=== PATIENT | female | born 1990 | race Caucasian/White ===

== ENCOUNTER 2016-07-03 19:38 | Inpatient (IN) | payer OTHER ==
[~2016-07-03] VITALS: Ht 157.5 cm; Wt 77.3 kg
[~2016-07-03 19:38] MED LIST: CLC100 PO; FLX10 PO; IBUP-1050 PO; MELA1TAB54 PO; MULT-506 PO
[2016-07-03] MEDS ORDERED: SODIUM CHLORIDE 0.9% 1000ML 1,000 ML IV STA (19:53)
[2016-07-03 20:19] LABS: URINE APPEARANCE CLEAR (CLEAR); URINE BILIRUBIN NEG (NEG); URINE COLOR YELLOW; URINE NITRITE NEG (NEG); URINE PH 7.5 (4.5-7.5); URINE SPECIFIC GRAVITY 1.003 (1.000-1.030); UROBILINOGEN NEG (NEG)
[2016-07-03 20:24] LABS: MANUAL MICROSCOPIC REQUIRED? NO; REVIEW REQ? NO
[2016-07-03 20:24] LABS: INR 0.9 (0.9-1.1); PROTHROMBIN TIME (PATIENT) 10.1 SECONDS (9.0-12.0)
--- NOTE | 2016-07-03 20:24 | DIAGNOSTIC IMAGING REPORT ---
CHEST ONE VIEW PORTABLE CLINICAL HISTORY: Overdose COMPARISON STUDY: No previous studies for comparison. FINDINGS: Lung volumes are normal. Kyphotic positioning is noted on this exam. No consolidation is present and there is no evidence of pulmonary edema. There is no pneumothorax or pleural effusion. Cardiomediastinal silhouette is normal. IMPRESSION: No acute cardiopulmonary findings. Electronically signed by: Demarcus Loomis M.D. 07/03/2016 8:23 PM Dictated Date/Time: 07/03/2016 8:22 PM
[2016-07-03 20:26] LABS: ALT/SGPT 14 U/L (12-78); BLOOD UREA NITROGEN 12 mg/dl (7-18); BUN/CREATININE RATIO 12.5 (10-20); CALCIUM 9.6 mg/dl (8.5-10.1); CARBON DIOXIDE 25 mmol/L (21-32); CHLORIDE 108 mmol/L (98-107); CREATININE 0.97 mg/dl (0.60-1.20); GLUCOSE 94 mg/dl (70-99); POTASSIUM 3.2 mmol/L (3.5-5.1); SODIUM 143 mmol/L (136-145)
[2016-07-03 20:29] LABS: ACETAMINOPHEN < 2 ug/ml (10-30); ALKALINE PHOSPHATASE 59 U/L (45-117); AST/SGOT 15 U/L (15-37)
[2016-07-03 20:46] LABS: BENZODIAZEPINE, URINE NEG (NEG); COCAINE,URINE NEG (NEG); PHENCYCLIDINE, URINE NEG (NEG)
[2016-07-03 20:47] LABS: BASO % 0.4 %; BASO ABS # 0.03 K/uL (0-0.2); COMPLETE YES; EOS % 0.6 %; HEMATOCRIT 36.8 % (37-47); IG% 0.1 %; LYMPH % 43.3 %; LYMPH ABS # 3.04 K/uL (1.2-3.4); MEAN CELL VOLUME 91.3 fL (80-100); MEAN CORPUSCULAR HEMOGLOBIN 31.3 pg (25-34); MEAN CORPUSCULAR HGB CONC 34.2 g/dl (32-36); MEAN PLATELET VOLUME 10.7 fL (7.4-10.4); MONO % 5.3 %; NEUT % 50.3 %; PLATELET COUNT 192 K/uL (130-400); RED BLOOD COUNT 4.03 M/uL (4.2-5.4); WHITE BLOOD COUNT 7.02 K/uL (4.8-10.8)
[2016-07-03] MEDS ORDERED: POTASSIUM CHLORIDE 10 MEQ TABCR PO STA (21:03)
[2016-07-03] MEDS ORDERED: LORAZEPAM 2 MG/ML 1 ML VIAL IV PRN ×2 (21:15)
[2016-07-03] MEDS ORDERED: ACETAMINOPHEN 325 MG TAB PO PRN (21:15)
[2016-07-03 21:26] LABS: PREG INTERNAL NEGATIVE QC NEG CLEAR BACKGROUND; PREG INTERNAL POSITIVE QC POS CONTROL LINE
--- NOTE | 2016-07-03 22:08 | History and Physical ---
History & Physical Date & Time of Service: Jul 03, 2016 at 21:38 Chief Complaint: Overdose, Confusion, Mental Health Primary Care Physician: Salinas Ellis M.D. History of Present Illness This is a 26 y/o female with PMHx of Depression, Anxiety and Schizophrenia who presents to the ED after an intentional overdose prior to arrival. Patient is poor historian and there is no family at bedside therefore history is gathered from patient and previous documentation. Pt reports that she has been feeling more depressed lately and tonight she was hearing voices that "put me down and tell me to do bad things." She took 60 25mg caps of hydroxyzine and 30 pills of BuSpar in an attempt to kill herself. The patient denies taking any other medications tonight. She currently feels "sleepy" but has no other complaints at this time. Pt has a history of previous suicide attempts. She denies homicidal ideation. She denies diaphoresis, chest pain, SOB, wheezing, abd pain , N/V, bowel or bladder issues, LE edema ,calf pain, lightheadedness/dizziness. In the ED, vitals are stable. K+ 3.2. Tox screen +THC. CXR negative. EKG NSR with normal Qtc. Pt will be admitted for further evaluation and treatment. Past Medical/Surgical History Medical Problems: (1) Anxiety Status: Chronic (2) Depression Status: Chronic (3) Schizophrenia Status: Chronic Social History Smoking Status: Former Smoker Marital Status: Housing status: lives with significant other Allergies Coded Allergies: No Known Allergies (Unverified , 07/03/16) Home Medications Unable to Obtain Active Prescriptions or Reported Meds Review of Systems Constitutional: No chills, No fever, No weakness Eyes: No worsening of vision ENT: No hearing loss Respiratory: No cough, No shortness of breath Cardiovascular: No chest pain, No claudication, No edema Abdomen: No constipation, No diarrhea, No nausea, No pain, No vomiting Musculoskeletal: No calf pain, No swelling Genitourinary - Female: No dysuria Neurologic: No weakness Psychiatric: + depression symptoms, + problem reported (hearing voices) Endocrine: + fatigue Hematologic / Lymphatic: No abnormal bleeding/bruising Integumentary: No new/changing skin lesions Physical Exam Vital Signs Date Time Temp Pulse Resp B/P Pulse Ox O2 Delivery O2 Flow Rate FiO2 07/03/16 21:24 126/83 07/03/16 21:12 94 18 100 Room Air 07/03/16 19:46 36.9 106 18 123/91 97 Room Air 07/03/16 19:46 98 Room Air General Appearance: WD/WN, no apparent distress, + pertinent finding (Pt is laying in bed appearing very aggitated and restless; no family at bedside) Head: normocephalic, atraumatic Eyes: normal inspection, PERRL ENT: hearing grossly normal Neck: supple Respiratory/Chest: chest non-tender, lungs clear, normal breath sounds, no respiratory distress Cardiovascular: regular rate, rhythm, no edema, no murmur Abdomen/GI: normal bowel sounds, non tender, soft Back: normal inspection Extremities/Musculoskelatal: normal inspection, no calf tenderness, no pedal edema Neurologic/Psych: alert, oriented x 3 (oriented to person and place but not to time), + pertinent finding (responding to auditory hallucinations) Skin: normal color, warm/dry Diagnostics Laboratory Results Results Past 24 Hours Test 07/03/16 19:15 07/03/16 20:03 07/03/16 20:05 07/03/16 20:08 Range/Units White Blood Count 7.02 4.8-10.8 K/uL Red Blood Count 4.03 4.2-5.4 M/uL Hemoglobin 12.6 12.0-16.0 g/dL Hematocrit 36.8 37-47 % Mean Corpuscular Volume 91.3 80-100 fL Mean Corpuscular Hemoglobin 31.3 25-34 pg Mean Corpuscular Hemoglobin Concent 34.2 32-36 g/dl Platelet Count 192 130-400 K/uL Mean Platelet Volume 10.7 7.4-10.4 fL Neutrophils (%) (Auto) 50.3 % Lymphocytes (%) (Auto) 43.3 % Monocytes (%) (Auto) 5.3 % Eosinophils (%) (Auto) 0.6 % Basophils (%) (Auto) 0.4 % Neutrophils # (Auto) 3.53 1.4-6.5 K/uL Lymphocytes # (Auto) 3.04 1.2-3.4 K/uL Monocytes # (Auto) 0.37 0.11-0.59 K/uL Eosinophils # (Auto) 0.04 0-0.5 K/uL Basophils # (Auto) 0.03 0-0.2 K/uL RDW Standard Deviation 45.3 36.4-46.3 fL RDW Coefficient of Variation 13.6 11.5-14.5 % Immature Granulocyte % (Auto) 0.1 % Immature Granulocyte # (Auto) 0.01 0.00-0.02 K/uL Nucleated RBC Absolute Count (auto) 0.00 0-0 K/uL Nucleated Red Blood Cells % 0.0 % Prothrombin Time 10.1 9.0-12.0 SECONDS Prothromb Time International Ratio 0.9 0.9-1.1 Activated Partial Thromboplast Time 26.7 21.0-31.0 SECONDS Partial Thromboplastin Ratio 1.0 Sodium Level 143 136-145 mmol/L Potassium Level 3.2 3.5-5.1 mmol/L Chloride Level 108 98-107 mmol/L Carbon Dioxide Level 25 21-32 mmol/L Anion Gap 10.0 3-11 mmol/L Blood Urea Nitrogen 12 7-18 mg/dl Creatinine 0.97 0.60-1.20 mg/dl Est Creatinine Clear Calc Drug Dose 85.4 ml/min Estimated GFR () 92.1 Estimated GFR (Non- 79.5 BUN/Creatinine Ratio 12.5 10-20 Random Glucose 94 70-99 mg/dl Calcium Level 9.6 8.5-10.1 mg/dl Total Bilirubin 0.4 0.2-1 mg/dl Direct Bilirubin < 0.1 0-0.2 mg/dl Aspartate Amino Transf (AST/SGOT) 15 15-37 U/L Alanine Aminotransferase (ALT/SGPT) 14 12-78 U/L Alkaline Phosphatase 59 45-117 U/L Total Creatine Kinase 116 26-192 U/L Total Protein 7.7 6.4-8.2 gm/dl Albumin 4.4 3.4-5.0 gm/dl Lipase 138 73-393 U/L Human Chorionic Gonadotropin, Qual NEG NEG Salicylates Level < 1.7 2.8-20 mg/dl Acetaminophen Level < 2 10-30 ug/ml Ethyl Alcohol mg/dL < 3.0 0-3 mg/dl Urine Color YELLOW Urine Appearance CLEAR CLEAR Urine pH 7.5 4.5-7.5 Urine Specific [place] 1.003 1.000-1.030 Urine Protein NEG NEG Urine Glucose (UA) NEG NEG Urine Ketones NEG NEG Urine Occult Blood NEG NEG Urine Nitrite NEG NEG Urine Bilirubin NEG NEG Urine Urobilinogen NEG NEG Urine Leukocyte Esterase NEG NEG Urine Opiates Screen NEG NEG Urine Methadone, Qualitative NEG NEG Urine Barbiturates NEG NEG Urine Phencyclidine (PCP) Level NEG NEG Ur Amphetamine/Methamphetamine NEG NEG MDMA (Ecstasy) Screen NEG NEG Urine Benzodiazepines Screen NEG NEG Urine Cocaine Metabolite NEG NEG Urine Marijuana (THC) POS NEG Bedside Glucose 97 70-90 mg/dl Diagnostic Radiology CXR IMPRESSION: No acute cardiopulmonary findings. EKG EKG: NSR at 85 bpm with no acute changes; no previous EKGs available for comparison Impression Assessment and Plan SUICIDE ATTEMPT/INTENTIONAL DRUG OVERDOSE pt presented after intentional drug overdose (60 30mg hydroxyzine and 30 pills of buspar); h/o previous suicide attempts -admit to telemetry -EKG: Qtc WNL; continue to monitor -Tox screen + THC -cont IVF -start Ativan PRN agitation or seizure -suicide checks q 15 mins -seizure precautions -patient denies homicidal ideation -consult psych, Dr. Fischer-pending input HYPOKALEMIA -K+ 3.2 -replete -monitor with prp daily SCHIZOPHRENIA/DEPRESSION/ANXIETY -+ auditory hallucinations -unsure if patient is on medication at home -defer mgmt to psych DVT PROPHYLAXIS -Low VTE risk -SCDs/ambulation CODE STATUS -FULL CODE status DISPO -Once medically stable, patient will be transferred to inpatient psych. -No family at bedside. Tried calling home contact number on chart ([phone] ) with no answer. is listed as contact however there is no number listed. -Pt seen in collaboration with Dr. Auguste. Please see her addendum for further details. Thanks! -Of note: patient will be followed by Dr. Hawk starting tomorrow AM. ATTENDING ADDENDUM : pt seen and examined , in agreement with above H&P by Dede Mckeon PA-C 26 yo F with past medical hx of schizophrenia ( no psychiatric records available during admission ) , anxiety disorder , depression presented with ED with intentional overdose of Vistaril /Hydroxyzine and BuSpar unable to get a reliable history form the patient -as she was still experiencing auditory hallucinations ( hearing voices ) , anxiety mentions that " she does not have any idea why the tool all those medications , then corrects herself that voices in her head asked to take them starts to talk to invisible person in mid conversation but polite -thanks very kindly for taking care of her in hospital P/E: GEN : young female , anxious , fidgeting with bed sheets , changing position constantly HEENT: pupils appears to be normal size, reactive to light HT: regular Lungs : CTA , no wheeze or rales abdomen ; soft,. non tender EXT: no rash Neuro : no focal neurological deficit , anxious , auditory hallucinations A/P: INTENTIONAL DRUG OVER DOSE pt mentions of intention to harm herself -says voices in her head told her to take them took 60tab of 30mg hydroxyzine and 30 pills of buspar prior hx of Suicidal attempt /admission [facility] Psych unit -no record found in [facility] poison control center contacted by ED Hydroxyzine H1 pauline -overdose -concern for antimuscarinic receptor blocking affect -SOB /urinary retention /tachycardiac /dry mouth /dilated pupil /delirium /hallucination monitor for Qtc prolongation -can lead to [place] Buspar OD : drowsiness , nausea , vomiting , [place] pupil ; short half life 2.5 hrs urine tox screen : negative for BDZ positive for THC -MARIJUANA per Poison control center -recommend supportive care with IV fluids seizure precaution PRN Ativan /BDZ for seizure daily EKG for QTc monitoring ( Admission EKG Qtc 452 ) LOW k : Replaced follow K , Mg level to prevent arrhythmia PSYCHOSIS /SCHIZOPHRENIA pt could not tell which psychiatrist she follows with no antipsychotic medication found in medicine reconciliation having Psychotic episode with Auditory hallucination Psych consult requested will need adjustment of med s Full code DISPOSITION ; will need in patient psych admission once medically stable form drug over dose VTE Prophylaxis VTE Risk Assessment Done? Y/N: Yes Risk Level: Low
[2016-07-03] MEDS ORDERED: ONDANSETRON INJ 2 MG/ML 2 ML VIAL IV PRN (22:15)
[2016-07-03 22:20] VITALS: Ht 157.5 cm; Wt 77.3 kg
[2016-07-03] MEDS ORDERED: SODIUM CHLORIDE 0.9% 1000ML 1,000 ML IV SCH (23:00)
[2016-07-03 23:59] VITALS: O2SAT 98
[2016-07-04] VITALS: BP 109/72; PULSE 99; TEMP 36.8; O2SAT 97
--- NOTE | 2016-07-04 01:13 | EMERGENCY ROOM VISIT NOTE ---
History Report prepared by Nivia: Maye Tapia Under the Supervision of: Cristian FarrisO. First contact with patient: 19:42 Chief Complaint: OVERDOSE (INTENTIONAL) Stated Complaint: OVERDOSE, CONFUSION, MENTAL HEALTH History of Present Illness The patient is a 26 year old female who presents to the Emergency Room with complaints of an episode of an intentional overdose occurring about 1 hour [employer]ARE TE[employer]. The patient has a history of anxiety, depression, and schizophrenia. She states that she has been feeling more depressed lately and tonight she was hearing voices that "put me down and tell me to do bad things." She took 60 25mg caps of hydroxyzine and 30 pills of BuSpar. She did this in an attempt to kill herself. She states, "I just haven't been feeling good and it escalated tonight. " The patient denies taking any other medications tonight. She denies taking any Motrin or Tylenol. She denies any HI, headache, chest pain, shortness of breath, changes in vision, nausea, vomiting, diarrhea, urinary symptoms, and chance of . Her LNMP was 1 month ago. Source of History: patient, nursing staff Onset: 1 hour DAY CARE TEACHER Position: other (global) Quality: other (suicidal) Timing: other (episode) Modifying Factors (Worsening): other (depression/hearing voices) Associated Symptoms: No SOB, No chest pain, No diarrhea, No headache, No urinary symptoms, No vomiting Note: Pt denies HI, changes in vision, and chance of . Review of Systems See HPI for pertinent positives & negatives. A total of 10 systems reviewed and were otherwise negative. Past Medical & Surgical Medical Problems: (1) Anxiety (2) Depression (3) Intentional drug overdose (4) Schizophrenia Family History No pertinent history stated. Social History Smoking Status: Unknown if Ever Smoked Marital Status: Current/Historical Medications Unable to Obtain Active Prescriptions or Reported Meds Allergies Coded Allergies: No Known Allergies (Unverified , 07/03/16) Physical Exam Vital Signs Date Time Temp Pulse Resp B/P Pulse Ox O2 Delivery O2 Flow Rate FiO2 07/03/16 19:46 36.9 106 18 123/91 97 Room Air 07/03/16 19:46 98 Room Air Physical Exam GENERAL: alert, sitting up in bed, disheveled appearing, well nourished, no distress, non-toxic, intermittent hiccups EYE EXAM: normal conjunctiva, PERRL and EOM's intact OROPHARYNX: no exudate, no erythema, lips, buccal mucosa, and tongue normal and mucous membranes are moist NECK: supple, no nuchal rigidity, no adenopathy, non-tender LUNGS: Clear to auscultation. Normal chest wall mechanics HEART: Tachycardic, no murmurs, S1 normal and S2 normal ABDOMEN: abdomen soft, non-tender, normo-active bowel sounds, no masses, no rebound or guarding. BACK: Back is symmetrical on inspection and there is no deformity, no midline tenderness, no CVA tenderness. SKIN: no rashes and no bruising UPPER EXTREMITIES: upper extremities are grossly normal. LOWER EXTREMITIES: No pitting edema. NEURO EXAM: Alert and oriented to person, place, and year. Cranial nerves II- XII grossly intact, normal speech, no gross weakness of arms, no gross weakness of legs. PSYCH: Admits to suicide attempt with auditory hallucination, denies HI. Medical Decision & Procedures ER Provider Diagnostic Interpretation: Radiology results as stated below per my review and the radiologist's interpretation: CHEST ONE VIEW PORTABLE CLINICAL HISTORY: Overdose COMPARISON STUDY: No previous studies for comparison. FINDINGS: Lung volumes are normal. Kyphotic positioning is noted on this exam. No consolidation is present and there is no evidence of pulmonary edema. There is no pneumothorax or pleural effusion. Cardiomediastinal silhouette is normal. IMPRESSION: No acute cardiopulmonary findings. Electronically signed by: Demarcus Loomis M.D. 07/03/2016 8:23 PM Dictated Date/Time: 07/03/2016 8:22 PM Laboratory Results 07/03/16 19:15 Red Blood Count 4.03, Mean Corpuscular Volume 91.3, Mean Corpuscular Hemoglobin 31.3, Mean Corpuscular Hemoglobin Concent 34.2, Mean Platelet Volume 10.7, Neutrophils (%) (Auto) 50.3, Lymphocytes (%) (Auto) 43.3, Monocytes (%) (Auto) 5.3, Eosinophils (%) (Auto) 0.6, Basophils (%) (Auto) 0.4, Neutrophils # (Auto) 3.53, Lymphocytes # (Auto) 3.04, Monocytes # (Auto) 0.37, Eosinophils # (Auto) 0.04, Basophils # (Auto) 0.03 07/03/16 19:15 Test 07/03/16 19:15 07/03/16 20:03 07/03/16 20:05 07/03/16 20:08 White Blood Count 7.02 K/uL (4.8-10.8) Red Blood Count 4.03 M/uL (4.2-5.4) Hemoglobin 12.6 g/dL (12.0-16.0) Hematocrit 36.8 % (37-47) Mean Corpuscular Volume 91.3 fL (80-100) Mean Corpuscular Hemoglobin 31.3 pg (25-34) Mean Corpuscular Hemoglobin Concent 34.2 g/dl (32-36) Platelet Count 192 K/uL (130-400) Mean Platelet Volume 10.7 fL (7.4-10.4) Neutrophils (%) (Auto) 50.3 % Lymphocytes (%) (Auto) 43.3 % Monocytes (%) (Auto) 5.3 % Eosinophils (%) (Auto) 0.6 % Basophils (%) (Auto) 0.4 % Neutrophils # (Auto) 3.53 K/uL (1.4-6.5) Lymphocytes # (Auto) 3.04 K/uL (1.2-3.4) Monocytes # (Auto) 0.37 K/uL (0.11-0.59) Eosinophils # (Auto) 0.04 K/uL (0-0.5) Basophils # (Auto) 0.03 K/uL (0-0.2) RDW Standard Deviation 45.3 fL (36.4-46.3) RDW Coefficient of Variation 13.6 % (11.5-14.5) Immature Granulocyte % (Auto) 0.1 % Immature Granulocyte # (Auto) 0.01 K/uL (0.00-0.02) Nucleated RBC Absolute Count (auto) 0.00 K/uL (0-0) Nucleated Red Blood Cells % 0.0 % Prothrombin Time 10.1 SECONDS (9.0-12.0) Prothromb Time International Ratio 0.9 (0.9-1.1) Activated Partial Thromboplast Time 26.7 SECONDS (21.0-31.0) Partial Thromboplastin Ratio 1.0 Anion Gap 10.0 mmol/L (3-11) Est Creatinine Clear Calc Drug Dose 85.4 ml/min Estimated GFR () 92.1 Estimated GFR (Non- 79.5 BUN/Creatinine Ratio 12.5 (10-20) Calcium Level 9.6 mg/dl (8.5-10.1) Total Bilirubin 0.4 mg/dl (0.2-1) Direct Bilirubin < 0.1 mg/dl (0-0.2) Aspartate Amino Transf (AST/SGOT) 15 U/L (15-37) Alanine Aminotransferase (ALT/SGPT) 14 U/L (12-78) Alkaline Phosphatase 59 U/L (45-117) Total Creatine Kinase 116 U/L (26-192) Total Protein 7.7 gm/dl (6.4-8.2) Albumin 4.4 gm/dl (3.4-5.0) Lipase 138 U/L (73-393) Human Chorionic Gonadotropin, Qual NEG (NEG) Salicylates Level < 1.7 mg/dl (2.8-20) Acetaminophen Level < 2 ug/ml (10-30) Ethyl Alcohol mg/dL < 3.0 mg/dl (0-3) Urine Color YELLOW Urine Appearance CLEAR (CLEAR) Urine pH 7.5 (4.5-7.5) Urine Specific [place] 1.003 (1.000-1.030) Urine Protein NEG (NEG) Urine Glucose (UA) NEG (NEG) Urine Ketones NEG (NEG) Urine Occult Blood NEG (NEG) Urine Nitrite NEG (NEG) Urine Bilirubin NEG (NEG) Urine Urobilinogen NEG (NEG) Urine Leukocyte Esterase NEG (NEG) Urine Opiates Screen NEG (NEG) Urine Methadone, Qualitative NEG (NEG) Urine Barbiturates NEG (NEG) Urine Phencyclidine (PCP) Level NEG (NEG) Ur Amphetamine/Methamphetamine NEG (NEG) MDMA (Ecstasy) Screen NEG (NEG) Urine Benzodiazepines Screen NEG (NEG) Urine Cocaine Metabolite NEG (NEG) Urine Marijuana (THC) POS (NEG) Bedside Glucose 97 mg/dl (70-90) Laboratory results per my review. Medications Administered Medications (Trade) Dose Ordered Sig/Rosa Route Start Time Stop Time Status Last Admin Dose Admin Sodium Chloride (Nss 1000ml) 1,000 ml @ 999 mls/hr Q1H1M STAT IV 07/03/16 19:53 07/03/16 20:53 DC 07/03/16 20:09 999 MLS/HR Potassium Chloride (Klor-Con M10) 30 meq NOW STAT PO 07/03/16 21:03 07/03/16 21:14 DC 07/03/16 21:22 30 MEQ ECG Indication: toxicologic Rate (beats per minute): 85 Rhythm: normal sinus Findings: no ectopy, other (normal axis, normal intervals) ED Course ED COURSE: Vital signs were reviewed and showed tachycardia. The patients medical record was reviewed The above diagnostic studies were performed and reviewed. ED treatments and interventions as stated above. 1941: The patient was evaluated in room B6. A complete history and physical examination was performed. 1952: NSS 1000 ml @ 999 mls/hr IV 2026: I reassessed the patient and she is doing well. 2038: I spoke with Poison Control at this time. We discussed the patient's case. They recommend monitoring the patient medically for seizures or lethargy. 2041: Upon reevaluation, the patient is she is resting comfortably. I discussed my findings with the patient and she understands and agrees with the treatment plan. Based on the patients age, coexisting illnesses, exam and lab findings the decision to treat as an inpatient was made. The patient remained stable while under my care. The patient will be evaluated for further management. 2057: I spoke with Dr. Auguste. We discussed the patient's results and treatment plan. The patient will be evaluated by the [facility] Hospitalist Group for further management. Medical Decision Differential diagnosis: Etiologies such as mood disorder, infection, hypoglycemia, electrolyte abnormalities, cardiac sources, intracerebral event, toxicologic, neurologic, as well as others were entertained. Patient is a 18-year-old female who presents the ER for a suicide attempt. She took 1.5 g of Vistaril and 300 mg of BuSpar. She was fairly tired and was initially tachycardic but this improved. CBC along with BMP, LFTs, bilirubin and lipase were negative. was negative. Potassium was slightly low at 3.2. EKG was unremarkable. Tylenol and acetaminophen was negative. Alcohol was negative. UA was negative. Patient was given a bolus normal saline and was admitted to internal medicine following discussion with Poison Control Center for observation overnight. Consults Time Called: 2004 Consulting Physician: Poison Control Returned Call: 2038 I spoke with Poison Control at this time. We discussed the patient's case. They recommend monitoring the patient medically for seizures or lethargy. Additional Consults: Time Called: 2050 Consulted Physician: Dr. Auguste Returned Call: 2057 Additional Comments: I spoke with Dr. Auguste. We discussed the patient's results and treatment plan. The patient will be evaluated by the [facility] Hospitalist Group for further management. Impression Primary Impression: Suicide attempt Additional Impression: Drug overdose Scribe Attestation The scribe's documentation has been prepared under my direction and personally reviewed by me in its entirety. I confirm that the note above accurately reflects all work, treatment, procedures, and medical decision making performed by me. Departure Information Dispostion Being Evaluated By Hospitalist Prescriptions Unable to Obtain Active Prescriptions or Reported Meds Patient Instructions My [facility] Problem Qualifiers Additional Impression: Drug overdose Encounter type: initial encounter Injury intent: intentional self-harm Qualified Codes: T50.902A - Poisoning by unspecified drugs, medicaments and biological substances, intentional self-harm, initial encounter
[2016-07-04 04:00] VITALS: BP 122/77; PULSE 82; TEMP 36.8; O2SAT 96; O2SAT 98
[2016-07-04 06:14] LABS: CALCIUM 9.6 mg/dl (8.5-10.1); CREATININE 0.98 mg/dl (0.60-1.20); MAGNESIUM 2.4 mg/dl (1.8-2.4); POTASSIUM 4.1 mmol/L (3.5-5.1)
[2016-07-04 07:26] LABS: HEMATOCRIT 39.1 % (37-47); MEAN CELL VOLUME 91.8 fL (80-100); MEAN CORPUSCULAR HGB CONC 33.8 g/dl (32-36); MEAN PLATELET VOLUME 10.9 fL (7.4-10.4); PLATELET COUNT 206 K/uL (130-400); RED BLOOD COUNT 4.26 M/uL (4.2-5.4); WHITE BLOOD COUNT 8.52 K/uL (4.8-10.8)
[2016-07-04 07:34] VITALS: BP 99/65; PULSE 66; TEMP 37.6; O2SAT 96
--- NOTE | 2016-07-04 10:23 | Psychiatric Consultation ---
Psychiatric Consultation Date of Service: Jul 04, 2016. 26-year-old white female with a history of depression and possibly other psychiatric diagnoses, who previously followed at [facility] but is currently off medications, who presented to the emergency room yesterday via EMS after an intentional overdose on 60 hydroxyzine and 30 buspirone. She told EMS that she overdosed in an attempt to harm herself, and was confused and disoriented when they arrived. She was admitted to the hospitalist service, where she has received supportive treatment. Records reviewed. Patient assessed by the psychiatric liaison nurse and case reviewed. The patient is willing for voluntary admission and has been accepted to [facility]. Please see admission history and physical for further information.
--- NOTE | 2016-07-04 10:47 | Discharge Instructions ---
Discharge Instructions Date of Service Jul 04, 2016. Admission Reason for Admission: Intentional Drug Overdose Discharge Discharge Diagnosis / Problem: Drug overdose Discharge Goals Goal(s): Decrease discomfort Activity Recommendations Activity Level: Up Ad Marya . Additional Information Patient informed of condition: Yes Advance Directives: No DNR: No Level of Care: Other (Inpatient mental health) Communicable Disease: No Prognosis: Stable Cordova Catheter: No Instructions / Follow-Up Instructions / Follow-Up Please follow up with your primary care physician within one week of discharge from inpatient mental health. Current Hospital Diet Patient's current hospital diet: Regular Diet Discharge Diet Recommended Diet: Regular Diet Pending Studies Studies pending at discharge: no Medical Emergencies . Who to Call and When: Medical Emergencies: If at any time you feel your situation is an emergency, please call 911 immediately. . Non-Emergent Contact Non-Emergency issues call your: Primary Care Provider, Specialist (Psychiatrist ) . . "Provider Documentation" section prepared by Airam Mendoza. Core Measure Problem Core Measures: None
[2016-07-04 10:53] VITALS: BP 99/65; PULSE 66; TEMP 37.6; O2SAT 96
--- NOTE | 2016-07-04 19:05 | Discharge Summary ---
Discharge Summary Date of Service Jul 04, 2016. Discharge Summary Admission Date: Jul 03, 2016 at 21:06 Discharge Date: Jul 04, 2016 Discharge Disposition: Acute care mental health Principal Diagnosis: Drug overdose Consultations: Psychiatry Medication Reconciliation Medication Profile: Unable to Obtain Active Prescriptions or Reported Meds Admission Information HPI (per Admitting provider): This is a 26 y/o female with PMHx of Depression, Anxiety and Schizophrenia who presents to the ED after an intentional overdose prior to arrival. Patient is poor historian and there is no family at bedside therefore history is gathered from patient and previous documentation. Pt reports that she has been feeling more depressed lately and tonight she was hearing voices that "put me down and tell me to do bad things." She took 60 25mg caps of hydroxyzine and 30 pills of BuSpar in an attempt to kill herself. The patient denies taking any other medications tonight. She currently feels "sleepy" but has no other complaints at this time. Pt has a history of previous suicide attempts. She denies homicidal ideation. She denies diaphoresis, chest pain, SOB, wheezing, abd pain , N/V, bowel or bladder issues, LE edema ,calf pain, lightheadedness/dizziness. In the ED, vitals are stable. K+ 3.2. Tox screen +THC. CXR negative. EKG NSR with normal Qtc. Pt will be admitted for further evaluation and treatment. Physical Exam (per Admitting): General Appearance: WD/WN, no apparent distress, + pertinent finding (Pt is laying in bed appearing very aggitated and restless; no family at bedside) Head: normocephalic, atraumatic Eyes: normal inspection, PERRL ENT: hearing grossly normal Neck: supple Respiratory/Chest: chest non-tender, lungs clear, normal breath sounds, no respiratory distress Cardiovascular: regular rate, rhythm, no edema, no murmur Abdomen/GI: normal bowel sounds, non tender, soft Back: normal inspection Extremities/Musculoskelatal: normal inspection, no calf tenderness, no pedal edema Neurologic/Psych: alert, oriented x 3 (oriented to person and place but not to time), + pertinent finding (responding to auditory hallucinations) Skin: normal color, warm/dry Hospital Course Patient was admitted after intentional overdose of hydroxyzine and buspirone. Patient received IVF's overnight and was monitored on telemetry without incident. Patient remained hemodynamically stable and labs were unremarkable. Psychiatry was consulted. Patient deemed stable for discharge to inpatient mental health. PE on discharge: General- awake; alert; NAD Eyes- EOMI; no scleral icterus Neck- no stridor; trachea midline Lungs- CTA bilaterally; no wheezes/crackles Heart- RRR; no m/r/g Abdomen- soft; NTND; nBS Back- no gross abnormalities Extremities- no c/c/e; no deformity Neuro- no focal deficits Skin- no appreciable rash or bruise; +tattoos . Total time spent on discharge = This includes examination of the patient, discharge planning, medication reconciliation, and communication with other providers. Discharge Instructions Discharge Instructions Date of Service Jul 04, 2016. Admission Reason for Admission: Intentional Drug Overdose Discharge Discharge Diagnosis / Problem: Drug overdose Discharge Goals Goal(s): Decrease discomfort Activity Recommendations Activity Level: Up Ad Marya . Additional Information Patient informed of condition: Yes Advance Directives: No DNR: No Level of Care: Other (Inpatient mental health) Communicable Disease: No Prognosis: Stable Cordova Catheter: No Instructions / Follow-Up Instructions / Follow-Up Please follow up with your primary care physician within one week of discharge from inpatient mental health. Current Hospital Diet Patient's current hospital diet: Regular Diet Discharge Diet Recommended Diet: Regular Diet Pending Studies Studies pending at discharge: no Medical Emergencies . Who to Call and When: Medical Emergencies: If at any time you feel your situation is an emergency, please call 911 immediately. . Non-Emergent Contact Non-Emergency issues call your: Primary Care Provider, Specialist (Psychiatrist ) . . "Provider Documentation" section prepared by Airam Mendoza. Core Measure Problem Core Measures: None Additional Copies To Salinas Ellis M.D.
== END 2016-07-04 11:10 | DRG 918 ==
LOC: ENRESERVDT → ENRESERVTM → C.EDB 19:42 → C.2T 21:06 → MERGE 21:06
PROVIDERS: ADMIT Hospitalist; ATTEND Internal Medicine
DX: T43.592A Poisoning by other antipsychotics and neuroleptics, intentional self-harm, initial encounter (principal); R40.0 Somnolence; R11.2 Nausea with vomiting, unspecified; R00.0 Tachycardia, unspecified; E87.6 Hypokalemia; F29 Unspecified psychosis not due to a substance or known physiological condition; F20.9 Schizophrenia, unspecified; F32.9 Major depressive disorder, single episode, unspecified; F41.9 Anxiety disorder, unspecified; Z91.5 Personal history of self-harm; Z87.891 Personal history of nicotine dependence

== ENCOUNTER 2016-07-04 11:10 | Inpatient (IN) | payer OTHER ==
[~2016-07-04] VITALS: Ht 154.9 cm; Wt 80.0 kg
[2016-07-04] MEDS ORDERED: ALUMINUM/MAGNESIUM SUSP 30 ML UDC PO PRN (11:45)
[2016-07-04] MEDS ORDERED: SODIUM CHLORIDE 0.65% NA SOLN 45 ML (OCEAN) PRN (11:45)
[2016-07-04] MEDS ORDERED: BISMUTH SUBSALICYLATE PER ML OMNICELL CHARGE PO PRN (11:45)
[2016-07-04] MEDS ORDERED: ACETAMINOPHEN 325 MG TAB PO PRN (11:45)
[2016-07-04] MEDS ORDERED: MAGNESIUM HYDROXIDE SUSP 30 ML UDC PO PRN (11:45)
[2016-07-04 11:56] VITALS: BP 129/83; PULSE 97; TEMP 36.6; BMI 33.3
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
[2016-07-04] MEDS ORDERED: RISPERIDONE ODT 1MG PO ONE (13:45)
[2016-07-04] MEDS: RISPERIDONE ODT 1MG PO SCH (21:15)
[2016-07-05 06:44] VITALS: BP_SYST 102; BP_SYST 128; BP_DIAS 68; BP_DIAS 82; PULSE 118; PULSE 92; TEMP 37
[2016-07-05 06:47] VITALS: Ht 154.9 cm; Wt 80.0 kg
[2016-07-05 08:32] LABS: CHOLESTEROL/HDL RATIO 2.5
[2016-07-05] MEDS: RISPERIDONE ODT 1MG PO SCH ×2 (08:39→21:11)
--- NOTE | 2016-07-05 13:18 | Psychiatric Progress Notes ---
Progress Note Date of Service Jul 05, 2016. Interval History 26 yo female admitted voluntarily on 07/04 with acute psychosis. Chief Complaint "OK". Subjective Patient was seen & assessed interval progress reviewed with Treatment Team. The patient reports that she continues to have auditory hallucinations, multiple voices "telling me destructive things" like to leave the unit, that she is no good. She also reports vis hallucinations seeing cats, cracks on the wall and holes. She feels that the TV is giving subliminal messages to the people of the [place], and that sometimes when she is on the phone, the people can read her mind. She feels that these symptoms are a little better on Risperdal. She report impaired sleep last night, laying awake unable to fall asleep. she denies SI/HI. She has not taken any PRN's but seems unaware that she has them. She denies side effects to meds. She says that even when not on meds, she sometimes feels like there are bugs crawling on her legs or in her food when she eats. She has experienced akathisia before and this is a different sensation. Review of Systems Constitutional: + fatigue ENT: No dental problems, No hearing loss, No nasal symptoms, No problem reported, No sore throat, No tinnitus, No trouble swallowing, No unusual epistaxis Respiratory: No cough, No dyspnea at rest, No dyspnea on exertion, No hemoptysis, No problem reported, No shortness of breath, No sputum, No wheezing Cardiovascular: No PND, No chest pain, No claudication, No edema, No orthopnea , No palpitations, No problem reported Abdomen: No GI bleeding, No constipation, No diarrhea, No nausea, No pain, No problem reported, No vomiting Musculoskeletal: No calf pain, No joint pain, No muscle pain, No problem reported, No swelling Neurologic: No balance problems, No memory loss, No numbness/tingling, No paralysis, No problem reported, No vertigo, No weakness Psychiatric: + problem reported (aud/vis/tactile hallucinations) Integumentary: + problem reported (tattoos) Sleep Information Total Hours of Sleep: 10.25 Meal Information Percent of Breakfast Consumed: 50 Percent of Lunch Consumed: 90 Percent of Dinner Consumed: 75 Mental Status Exam During interview pt is: alert and oriented, cooperative Appearance: appropriately dressed, appropriately groomed Eye contact is: good Motor behavior is: steady gait & station, no abnormal motor movements Speech: normal in rate, rhythm & volume Affect: mood congruent, blunted Mood is: depressed Thought process: goal directed Thought content: thought broadcasting, other (ideas of reference, aud/vis/ tactile hallucinations) Suicidal thought are: denied Homicidal thoughts are: denied Hallucinations: auditory, visual, tactile Cognition: memory grossly intact, attention grossly intact, language grossly intact Intelligence estimated to be: average Insight: impaired Judgement: impaired Impression Adjusting to the unit. continues with aud/vis/tactile hallucinations as well as ideas of reference and thought broadcasting. Tolerating start of risperdal with minimal improvement. Will increase to 1 mg. AM and 2 mg. HS Plan (1) Intentional drug overdose Avoid medications dangerous in overdose, as this is her third intentional OD. Attend groups and therapy, work on healthy ways to cope and discharge safety plan. Family meeting to review safety plan, ensure no access to guns, and that all meds in the home are locked and secured so she will not have access. (2) Psychosis Differential is broad and includes a primary thought disorder, such as schizophrenia or schizoaffective disorder, bipolar disorder with psychosis, depression with psychosis, or substance induced psychosis. The patient endorses many symptoms, and is a poor historian with respect to the time course of past symptoms. She does not know what she's been diagnosed with in the past , and to that end, we'll request records from Dr. Brandon, her outpatient psychiatrist. Patient's primary concern is AVH. Has never tried risperidone and willing for trial. Reviewed risks, benefits, and common side effects, and she agreed. Will start risperidone M tab, 1 mg twice a day with 1 mg every 6 hours when necessary psychosis. Check fasting labs tomorrow. She thinks that Abilify Maintena was considered in the past, and believe she had a good response to Abilify, but is not sure why this wasn't pursued. We'll need to look into this further, but if covered by insurance, it may be a good option. 07/05/16 - Increase risperdal to 1 mg. AM and 2 mg. HS. Continue prns - Reality orientation (3) Anxiety Patient reports symptoms of generalized anxiety disorder, and anxiety is worse recently due to hallucinations. We will need to continue to assess for the presence of an underlying anxiety disorder as her psychosis improved. In the meantime, offer hydroxyzine as needed for anxiety. (4) Bipolar disorder, unspecified The patient endorses periods of depression with frequent, brief, periods of hypomania. The longest lasted about 3 days per her report, so does not quite meet criteria for bipolar type II, but we'll need to further explore this diagnosis. It would be helpful to get collateral information from family, and to review records from outpatient providers. Consider the need for a mood stabilizer. She states she's never been on lithium or Depakote. (5) Cannabis abuse Reviewed risks of ongoing substance abuse and recommendations for abstinence. Refer for outpatient therapy and psychiatric f/u to address mental illness and substance abuse. Avoid prescription of medications that are addictive or abusable. Discharge / Aftercare Planning Primary Care Physician: Name: Dr. Ellis Psychiatrist: Name: Dr. Brandon Date of Appointment: Jul 12, 2016 Time of Appointment: 10:00am Therapist: Name: [facility] Appointment Notes: You will be scheduled for therapist after your appt with Dr. Kenyon Visit Code E&M Code: 31554 Inventory Assets Strengths: , supportive , responsibility for young children Risk Factors Assessment : Yes Higher / Fall in social status: No Health problems: No Mental Health Diagnoses: Yes Substance use disorders: Yes Data Vital Signs Last 24 Hrs: Date Time Temp Pulse Resp B/P Pulse Ox O2 Delivery O2 Flow Rate FiO2 07/05/16 06:44 37.0 92 18 102/68 118 128/82 Meds Administered Last 24 Hrs: Meds Administered (Past 24Hrs) Medications (Trade) Dose Ordered Sig/Rosa Route Start Time Stop Time Status Last Admin Dose Admin Risperidone (Risperdal M Tab) 1 mg BID PO 07/04/16 22:00 08/03/16 21:59 07/05/16 08:39 1 MG Risperidone (Risperdal M Tab) 1 mg NOW ONCE PO 07/04/16 13:45 07/04/16 13:46 DC 07/04/16 13:54 1 MG Lab Results Last 24 Hrs: Last 24 Hours Test 07/05/16 07:12 Fasting Glucose 85 mg/dl Triglycerides Level 123 mg/dl Cholesterol Level 171 mg/dl HDL Cholesterol 69 mg/dl LDL Cholesterol, Calculated 77 mg/dl VLDL Cholesterol, Calculated 25 mg/dl Cholesterol/HDL Ratio 2.5 Thyroid Stimulating Hormone (TSH) 1.570 uIu/ml Problem Qualifiers (1) Psychosis: Psychosis type: unspecified psychosis type Qualified Codes: F29 - Unspecified psychosis not due to a substance or known physiological condition
[2016-07-05] MEDS: RISPERIDONE ODT 0.5MG PO PRN (14:14)
[2016-07-05] MEDS: hydrOXYzine HCL 25 MG TAB PO PRN ×2 (15:35→22:09)
[2016-07-06 06:45] VITALS: BP_SYST 121; BP_SYST 122; BP_DIAS 85; BP_DIAS 88; PULSE 105; PULSE 99; TEMP 37
--- NOTE | 2016-07-06 07:52 | Psychiatric Progress Notes ---
Progress Note Date of Service Jul 06, 2016. Interval History 26 yo female with BPI with psychotic features admitted voluntarily on 07/04 with acute psychosis from the medical unit s/p TI of buspar and ativan prior to admission. Chief Complaint "I think this medication is helping me". Subjective Patient was seen & assessed interval progress reviewed with Nursing Ongoing chronic hallucinations and 07/05/16 shared she was having olfactory hallucinations in addition to the AH and VH. She is taking the risperdal 1mg/AM and 2mg/hs increased t that full dose on , had 0.5mg in the middle of the day prn "definitely helpful" was her response to staff came for a meeting and he is willing to help manage her medications She slept with vistaril and her routine evening meds last night >7hours. Per nursing patient reported she was not doing well today and requested prn medication for hallucinations and had risperdal 0.5mg prn mid day WHile meeting with this provider she seems upbeat and personably She shares that she feels her symptoms of paranoia that others are talking about her, and her AH/VH are improving but still worsening mid-day "that is why I ask for the mid-day dose" AH are voices of men, denies command hallucinations at this time. She denies SE of the risperdal and states the bouncing of her leg is life long and denies akathesia, EPS/dystonia or fatigue. SHe is concerned about weight and monitoring. SHe is not routinely exercising. She does admit to drinking 10-20cups of caffienated coffee/day at home reports a mild ABREU here but "not too bad" She states she has h/o working with a neurologist for her decompression surgery for Chiari Malformation, and had seizures while she was but has been seizure free off meds for several years and has routine f/u with neurology. She states she has had the olfactory (sometimes citrus, sometimes dog feces) and visual hallucinations (e.g. maggots coming out of the ice machine, men ...) since childhood and her EEG's despite ongoing OH/VH have been seizure free. Review of Systems SHe denies physical concerns at this time other than a mild ABREU, appetite intact , sleep intact on sleep prn medication Sleep Information Total Hours of Sleep: 7.50 Meal Information Percent of Breakfast Consumed: 50 Percent of Lunch Consumed: 90 Percent of Dinner Consumed: 90 Mental Status Exam During interview pt is: alert and oriented, cooperative Appearance: appropriately dressed, appropriately groomed Eye contact is: good Motor behavior is: steady gait & station, no abnormal motor movements (other than consistently bouncing her leg through the interview) Speech: normal in rate, rhythm & volume Affect: mood congruent, other (seems pleasant and candid) Mood is: other (appears pleasant and sociable) Thought process: goal directed Thought content: thought broadcasting, other (ideas of reference, aud/vis/ tactile hallucinations and olfactory hallucinations) Suicidal thought are: denied Homicidal thoughts are: denied Hallucinations: auditory, visual, tactile Cognition: memory grossly intact, attention grossly intact, language grossly intact Intelligence estimated to be: average Insight: impaired Judgement: impaired Impression Adjusting to the unit. continues with aud/vis/tactile/olfactory hallucinations as well as ideas of reference and thought broadcasting the latter of which seem to be ongoing as she asks provider "can you read my thoughts?" on 07/06/16. Tolerating start of risperdal with modest improvement and no SE to date Plan (1) Intentional drug overdose Avoid medications dangerous in overdose, as this is her third intentional OD. Attend groups and therapy, work on healthy ways to cope and discharge safety plan. Family meeting to review safety plan, ensure no access to guns, and that all meds in the home are locked and secured so she will not have access. (2) Psychosis Differential is broad and includes a primary thought disorder, such as schizophrenia or schizoaffective disorder, bipolar disorder with psychosis, depression with psychosis, or substance induced psychosis. The patient endorses many symptoms, and is a poor historian with respect to the time course of past symptoms. She does not know what she's been diagnosed with in the past , and to that end, we'll request records from Dr. Brandon, her outpatient psychiatrist. Patient's primary concern is AVH. Has never tried risperidone and willing for trial. Reviewed risks, benefits, and common side effects, and she agreed. Will start risperidone M tab, 1 mg twice a day with 1 mg every 6 hours when necessary psychosis. Check fasting labs tomorrow. She thinks that Abilify Maintena was considered in the past, and believe she had a good response to Abilify, but is not sure why this wasn't pursued. We'll need to look into this further, but if covered by insurance, it may be a good option. 07/05/16 - Increase risperdal to 1 mg. AM and 2 mg. HS. Continue prns - Reality orientation 07/06/16 - Review of labs 07/05/16 FBS, Fasting Lipids and TSH all WNL - Continue risperdal 1mg/AM and 2mg/hs and keep prns, if she continues to need mid-day prns would schedule higher dose tomorrow - watch weight and recommend dietary monitoring and exercise, if this medication is effective and weight is climbing consider metformin to offset weight gain given failure of polypharmacy trials in the past - reduce caffiene (see below) - consider psych rehab so that patient can practice reality testing against her IOR and paranoia in social settings (3) Anxiety Patient reports symptoms of generalized anxiety disorder, and anxiety is worse recently due to hallucinations. We will need to continue to assess for the presence of an underlying anxiety disorder as her psychosis improved. In the meantime, offer hydroxyzine as needed for anxiety. (4) Bipolar disorder, unspecified The patient endorses periods of depression with frequent, brief, periods of hypomania. The longest lasted about 3 days per her report, so does not quite meet criteria for bipolar type II, but we'll need to further explore this diagnosis. It would be helpful to get collateral information from family, and to review records from outpatient providers. Consider the need for a mood stabilizer. She states she's never been on lithium or Depakote. 07/06/16 - patient is socially pleasant and smiling not c/w depression, unclear if this is her baseline back on medications and need to watch for emergence of elevated mood (5) Cannabis abuse Reviewed risks of ongoing substance abuse and recommendations for abstinence. Refer for outpatient therapy and psychiatric f/u to address mental illness and substance abuse. Avoid prescription of medications that are addictive or abusable. (6) Caffeine abuse 07/06/16 patient admits to hving 10-20 cups of coffee daily at home. ENgaged in behavioral therapy to discuss reduction or abstaining. She agres she can put the green coffee blender away, has insight to the behavioral associations of comfort with cofee but states she understands how this could impact energy and sleep. She notes she will have a hard time not drinking coffee. DIscussed change to decaf to allow her the smell and taste without excessive caffiene. Encouraged her to work on diet, exercise and work with MD regading any sedation from medications to assist her in not returning to caffiene overuse. Discharge / Aftercare Planning Primary Care Physician: Name: Dr. Ellis Psychiatrist: Name: Dr. Brandon Date of Appointment: Jul 12, 2016 Time of Appointment: 10:00am Therapist: Name: [facility] Appointment Notes: You will be scheduled for therapist after your appt with Dr. Kenyon Visit Code E&M Code: 71480 Inventory Assets Strengths: , supportive , responsibility for young children Risk Factors Assessment : Yes Higher / Fall in social status: No Health problems: No Mental Health Diagnoses: Yes Substance use disorders: Yes Data Vital Signs Last 24 Hrs: Date Time Temp Pulse Resp B/P Pulse Ox O2 Delivery O2 Flow Rate FiO2 07/06/16 06:45 37.0 99 17 121/85 105 122/88 Meds Administered Last 24 Hrs: Meds Administered (Past 24Hrs) Medications (Trade) Dose Ordered Sig/Rosa Route Start Time Stop Time Status Last Admin Dose Admin Hydroxyzine HCl (Vistaril Tab) 50 mg HSZ PRN PO 07/04/16 11:45 08/03/16 11:44 07/05/16 22:09 50 MG Hydroxyzine HCl (Vistaril Tab) 25 mg Q4H PRN PO 07/04/16 11:45 08/03/16 11:44 07/05/16 15:35 25 MG Risperidone (Risperdal M Tab) 1 mg BID PO 07/04/16 22:00 07/05/16 13:26 DC 07/05/16 08:39 1 MG Risperidone (Risperdal M Tab) 1 mg NOW ONCE PO 07/04/16 13:45 07/04/16 13:46 DC 07/04/16 13:54 1 MG Risperidone (Risperdal M Tab) 0.5 mg Q4 PRN PO 07/04/16 13:30 08/03/16 13:29 4/7/17 14:14 0.5 MG Risperidone (Risperdal M Tab) 2 mg HS PO 07/05/16 22:00 08/04/16 21:59 07/05/16 21:11 2 MG Problem Qualifiers (1) Psychosis: Psychosis type: unspecified psychosis type Qualified Codes: F29 - Unspecified psychosis not due to a substance or known physiological condition
[2016-07-06] MEDS: RISPERIDONE ODT 1MG PO SCH ×2 (08:50→21:49)
[2016-07-06] MEDS: RISPERIDONE ODT 0.5MG PO PRN ×2 (10:17→18:32)
[2016-07-06] MEDS ORDERED: RISPERIDONE 0.5 MG TAB PO ONE (12:45)
[2016-07-06] MEDS: hydrOXYzine HCL 25 MG TAB PO PRN (19:55)
[2016-07-07 06:46] VITALS: BP_SYST 101; BP_SYST 116; BP_DIAS 71; BP_DIAS 89; PULSE 102; PULSE 90; TEMP 36.7
[2016-07-07] MEDS: RISPERIDONE ODT 1MG PO SCH ×2 (08:45→21:35)
[2016-07-07] MEDS: hydrOXYzine HCL 25 MG TAB PO PRN (10:41)
--- NOTE | 2016-07-07 11:52 | Psychiatric Progress Notes ---
Progress Note Date of Service Jul 07, 2016. Interval History 26 yo female with BPI with psychotic features admitted voluntarily on 07/04 with acute psychosis from the medical unit s/p TI of marilu and atnaresh prior to admission. Chief Complaint "surprisingly very well, that one medication is helping". Subjective Patient was seen & assessed interval progress reviewed with Nursing and chart reviewed. She continues to state the risperdal helps her voices but then will reproach the nursing station with return of paranoia of being looked at and AH. She had total of 4.5mg risperdal yesterday divided. She had vistaril last pm for anxiety, and then took an additional 25mg dose vistaril. She states the intensity of her hallucinations was a 10/10 prior to admission "my skull felt like it was going to crack the hallucinations were all the time and intense" and today is a 3-4/10 "they are muted" and they are not as loud and has "1-2,not 6 voices" AH continue to command her "to try to get out, you are better than this, leave here" but no longer yelling at me "like rumor whispering" no further OH/Tactile hallucinations, VH "a little bit...the carpet moves at times but I can ignore it easier now" We spent >17min in therapy discusing the pending visit of her ex- today as he brings her children. Discussed having a "fire drill plan" as he tends to say snarky and provocative things and then calls her names when she reacts. We discussed planned ways to deal with the situation if he makes snarky comments or calls names. SHe participates and is receptive to the intervention. Review of Systems Denies physical concerns, she is sleeping well, appetite is increased. Sleep Information Total Hours of Sleep: 6.50 Meal Information Percent of Breakfast Consumed: 75 Percent of Lunch Consumed: 100 Percent of Dinner Consumed: 100 Mental Status Exam During interview pt is: alert and oriented, cooperative Appearance: appropriately dressed, appropriately groomed Eye contact is: good Motor behavior is: steady gait & station, no abnormal motor movements Speech: normal in rate, rhythm & volume Affect: mood congruent, other (seems pleasant and candid) Mood is: other (appears pleasant and sociable) Thought process: goal directed Thought content: thought broadcasting, other (residual AVH, denies OH or tactile hallucinations) Suicidal thought are: denied Homicidal thoughts are: denied Hallucinations: auditory, visual, tactile Cognition: memory grossly intact, attention grossly intact, language grossly intact Intelligence estimated to be: average Insight: impaired Judgement: impaired Impression Patient seems to be responding to risperdal well, need to watch increase of appetite. Plan (1) Intentional drug overdose Avoid medications dangerous in overdose, as this is her third intentional OD. Attend groups and therapy, work on healthy ways to cope and discharge safety plan. Family meeting to review safety plan, ensure no access to guns, and that all meds in the home are locked and secured so she will not have access. (2) Psychosis Differential is broad and includes a primary thought disorder, such as schizophrenia or schizoaffective disorder, bipolar disorder with psychosis, depression with psychosis, or substance induced psychosis. The patient endorses many symptoms, and is a poor historian with respect to the time course of past symptoms. She does not know what she's been diagnosed with in the past , and to that end, we'll request records from Dr. Brandon, her outpatient psychiatrist. Patient's primary concern is AVH. Has never tried risperidone and willing for trial. Reviewed risks, benefits, and common side effects, and she agreed. Will start risperidone M tab, 1 mg twice a day with 1 mg every 6 hours when necessary psychosis. Check fasting labs tomorrow. She thinks that Abilify Maintena was considered in the past, and believe she had a good response to Abilify, but is not sure why this wasn't pursued. We'll need to look into this further, but if covered by insurance, it may be a good option. 07/05/16 - Increase risperdal to 1 mg. AM and 2 mg. HS. Continue prns - Reality orientation 07/06/16 - Review of labs 07/05/16 FBS, Fasting Lipids and TSH all WNL - Continue risperdal 1mg/AM and 2mg/hs and keep prns, if she continues to need mid-day prns would schedule higher dose tomorrow - watch weight and recommend dietary monitoring and exercise, if this medication is effective and weight is climbing consider metformin to offset weight gain given failure of polypharmacy trials in the past - reduce caffiene (see below) - consider psych rehab so that patient can practice reality testing against her IOR and paranoia in social settings 07/07/16 - risperdal 1mg/AM, 1mg mid-day and 2mg/bedtime schedule and keep prn doses - see 07/06/16 as above. (3) Anxiety Patient reports symptoms of generalized anxiety disorder, and anxiety is worse recently due to hallucinations. We will need to continue to assess for the presence of an underlying anxiety disorder as her psychosis improved. In the meantime, offer hydroxyzine as needed for anxiety. (4) Bipolar disorder, unspecified The patient endorses periods of depression with frequent, brief, periods of hypomania. The longest lasted about 3 days per her report, so does not quite meet criteria for bipolar type II, but we'll need to further explore this diagnosis. It would be helpful to get collateral information from family, and to review records from outpatient providers. Consider the need for a mood stabilizer. She states she's never been on lithium or Depakote. 07/06/16 and 07/07/16 - patient is socially pleasant and smiling not c/w depression, unclear if this is her baseline back on medications and need to watch for emergence of elevated mood (5) Cannabis abuse Reviewed risks of ongoing substance abuse and recommendations for abstinence. Refer for outpatient therapy and psychiatric f/u to address mental illness and substance abuse. Avoid prescription of medications that are addictive or abusable. (6) Caffeine abuse 07/06/16 patient admits to hving 10-20 cups of coffee daily at home. ENgaged in behavioral therapy to discuss reduction or abstaining. She agres she can put the bow maker machine tender away, has insight to the behavioral associations of comfort with cofee but states she understands how this could impact energy and sleep. She notes she will have a hard time not drinking coffee. DIscussed change to decaf to allow her the smell and taste without excessive caffiene. Encouraged her to work on diet, exercise and work with MD regading any sedation from medications to assist her in not returning to caffiene overuse. Discharge / Aftercare Planning Primary Care Physician: Name: Dr. Ellis Psychiatrist: Name: Dr. Brandon Date of Appointment: Jul 12, 2016 Time of Appointment: 10:00am Therapist: Name: [facility] Appointment Notes: You will be scheduled for therapist after your appt with Dr. Kenyon Visit Code E&M Code: 81902 Therapy Code: 15292 see subjective as above Inventory Assets Strengths: , supportive , responsibility for young children Risk Factors Assessment : Yes Higher / Fall in social status: No Health problems: No Mental Health Diagnoses: Yes Substance use disorders: Yes Data Vital Signs Last 24 Hrs: Date Time Temp Pulse Resp B/P Pulse Ox O2 Delivery O2 Flow Rate FiO2 07/07/16 06:46 36.7 90 16 101/71 102 116/89 Meds Administered Last 24 Hrs: Meds Administered (Past 24Hrs) Medications (Trade) Dose Ordered Sig/Rosa Route Start Time Stop Time Status Last Admin Dose Admin Risperidone (Risperdal M Tab) 1 mg QAM PO 07/06/16 09:00 08/05/16 08:59 07/06/16 08:50 1 MG Risperidone (Risperdal M Tab) 2 mg HS PO 07/05/16 22:00 08/04/16 21:59 07/06/16 21:49 2 MG Risperidone (Risperdal Tab) 0.5 mg TODAY@1245 ONCE PO 07/06/16 12:45 07/06/16 12:46 DC 07/06/16 12:49 0.5 MG Problem Qualifiers (1) Psychosis: Psychosis type: unspecified psychosis type Qualified Codes: F29 - Unspecified psychosis not due to a substance or known physiological condition
[2016-07-07] MEDS: RISPERIDONE 1 MG TAB PO SCH (13:08)
[2016-07-08 06:48] VITALS: BP_SYST 116; BP_SYST 124; BP_DIAS 82; BP_DIAS 91; PULSE 103; PULSE 99; TEMP 36.7
[2016-07-08] MEDS: RISPERIDONE ODT 1MG PO SCH ×2 (08:28→21:18)
--- NOTE | 2016-07-08 09:31 | Psychiatric Progress Notes ---
Progress Note Date of Service Jul 08, 2016. Interval History 26 yo female with BPI with psychotic features admitted voluntarily on 07/04 with acute psychosis from the medical unit s/p TI of buspar and ativan prior to admission. Chief Complaint "I feel 'normal'.". Subjective Patient was seen & assessed interval progress reviewed with Treatment Team. The patient says that she had a good weekend and is feeling like her meds are working. She says that for the first time in a long while, she can focus on what people are saying and not the voices in her head. She says that "the volume has been turned down" on the voices. She is very happy about her progress and is thinking that she could go home in the next few days. She is looking forward to [facility] and wants to be able to prepare for it for her children. She denies side effects to meds and is thinking about the possible weight gain, and thinking of ways to remain active to compensate. Review of Systems Constitutional: No chills, No fatigue, No fever, No problem reported, No sweats , No weakness, No weight loss ENT: No dental problems, No hearing loss, No nasal symptoms, No problem reported, No sore throat, No tinnitus, No trouble swallowing, No unusual epistaxis Respiratory: No cough, No dyspnea at rest, No dyspnea on exertion, No hemoptysis, No problem reported, No shortness of breath, No sputum, No wheezing Cardiovascular: No PND, No chest pain, No claudication, No edema, No orthopnea , No palpitations, No problem reported Abdomen: No GI bleeding, No constipation, No diarrhea, No nausea, No pain, No problem reported, No vomiting Musculoskeletal: No calf pain, No joint pain, No muscle pain, No problem reported, No swelling Neurologic: No balance problems, No memory loss, No numbness/tingling, No paralysis, No problem reported, No vertigo, No weakness Psychiatric: + problem reported (aud hallucinations are quieter) Integumentary: No bleeding, No color change, No itch, No new/changing skin lesions, No problem reported, No rash Sleep Information Total Hours of Sleep: 7.50 Meal Information Percent of Breakfast Consumed: 100 Percent of Lunch Consumed: 100 Percent of Dinner Consumed: 75 Mental Status Exam During interview pt is: alert and oriented, cooperative Appearance: appropriately dressed, appropriately groomed Eye contact is: good Motor behavior is: steady gait & station, no abnormal motor movements Speech: normal in rate, rhythm & volume Affect: mood congruent Mood is: other (happy) Thought process: goal directed Thought content: thought broadcasting, other (residual AVH, denies OH or tactile hallucinations) Suicidal thought are: denied Homicidal thoughts are: denied Hallucinations: auditory, visual, tactile Cognition: memory grossly intact, attention grossly intact, language grossly intact Intelligence estimated to be: average Insight: impaired Judgement: impaired Impression Continues to improve, with diminished hallucinations and improved mood. She is happy with risperdal and we will continue current dose. If continues to progress, could consider discharge in the next few days. Plan (1) Intentional drug overdose Avoid medications dangerous in overdose, as this is her third intentional OD. Attend groups and therapy, work on healthy ways to cope and discharge safety plan. Family meeting to review safety plan, ensure no access to guns, and that all meds in the home are locked and secured so she will not have access. (2) Psychosis Differential is broad and includes a primary thought disorder, such as schizophrenia or schizoaffective disorder, bipolar disorder with psychosis, depression with psychosis, or substance induced psychosis. The patient endorses many symptoms, and is a poor historian with respect to the time course of past symptoms. She does not know what she's been diagnosed with in the past , and to that end, we'll request records from Dr. Brandon, her outpatient psychiatrist. Patient's primary concern is AVH. Has never tried risperidone and willing for trial. Reviewed risks, benefits, and common side effects, and she agreed. Will start risperidone M tab, 1 mg twice a day with 1 mg every 6 hours when necessary psychosis. Check fasting labs tomorrow. She thinks that Abilify Maintena was considered in the past, and believe she had a good response to Abilify, but is not sure why this wasn't pursued. We'll need to look into this further, but if covered by insurance, it may be a good option. 07/05/16 - Increase risperdal to 1 mg. AM and 2 mg. HS. Continue prns - Reality orientation 07/06/16 - Review of labs 07/05/16 FBS, Fasting Lipids and TSH all WNL - Continue risperdal 1mg/AM and 2mg/hs and keep prns, if she continues to need mid-day prns would schedule higher dose tomorrow - watch weight and recommend dietary monitoring and exercise, if this medication is effective and weight is climbing consider metformin to offset weight gain given failure of polypharmacy trials in the past - reduce caffiene (see below) - consider psych rehab so that patient can practice reality testing against her IOR and paranoia in social settings 07/07/16 - risperdal 1mg/AM, 1mg mid-day and 2mg/bedtime schedule and keep prn doses - see 07/06/16 as above. 07/08 - continue current meds (3) Anxiety Patient reports symptoms of generalized anxiety disorder, and anxiety is worse recently due to hallucinations. We will need to continue to assess for the presence of an underlying anxiety disorder as her psychosis improved. In the meantime, offer hydroxyzine as needed for anxiety. (4) Bipolar disorder, unspecified The patient endorses periods of depression with frequent, brief, periods of hypomania. The longest lasted about 3 days per her report, so does not quite meet criteria for bipolar type II, but we'll need to further explore this diagnosis. It would be helpful to get collateral information from family, and to review records from outpatient providers. Consider the need for a mood stabilizer. She states she's never been on lithium or Depakote. 07/06/16 and 07/07/16 - patient is socially pleasant and smiling not c/w depression, unclear if this is her baseline back on medications and need to watch for emergence of elevated mood (5) Cannabis abuse Reviewed risks of ongoing substance abuse and recommendations for abstinence. Refer for outpatient therapy and psychiatric f/u to address mental illness and substance abuse. Avoid prescription of medications that are addictive or abusable. (6) Caffeine abuse 07/06/16 patient admits to hving 10-20 cups of coffee daily at home. ENgaged in behavioral therapy to discuss reduction or abstaining. She agres she can put the bunch maker hand away, has insight to the behavioral associations of comfort with cofee but states she understands how this could impact energy and sleep. She notes she will have a hard time not drinking coffee. DIscussed change to decaf to allow her the smell and taste without excessive caffiene. Encouraged her to work on diet, exercise and work with MD regading any sedation from medications to assist her in not returning to caffiene overuse. Discharge / Aftercare Planning Primary Care Physician: Name: Dr. Ellis Psychiatrist: Name: Dr. Brandon Date of Appointment: Jul 12, 2016 Time of Appointment: 10:00am Therapist: Name: ROXANNE Appointment Notes: You will be scheduled for therapist after your appt with Dr. Kenyon Visit Code E&M Code: 18626 Inventory Assets Strengths: , supportive , responsibility for young children Risk Factors Assessment : Yes Higher / Fall in social status: No Health problems: No Mental Health Diagnoses: Yes Substance use disorders: Yes Protective Factors Assessment Adventist beliefs: Yes : Yes Responsible for young children: No Employed: No Stable relationships: Yes Supportive family: Yes Data Vital Signs Last 24 Hrs: Date Time Temp Pulse Resp B/P Pulse Ox O2 Delivery O2 Flow Rate FiO2 07/08/16 06:48 36.7 99 16 116/82 103 124/91 Meds Administered Last 24 Hrs: Meds Administered (Past 24Hrs) Medications (Trade) Dose Ordered Sig/Rosa Route Start Time Stop Time Status Last Admin Dose Admin Risperidone (Risperdal Tab) 1 mg QD@1300 PO 07/07/16 13:00 08/06/16 12:59 07/07/16 13:08 1 MG Risperidone (Risperdal Tab) 0.5 mg TODAY@1245 ONCE PO 07/06/16 12:45 07/06/16 12:46 DC 07/06/16 12:49 0.5 MG Lab Results Last 24 Hrs: Test 07/05/16 07:12 Fasting Glucose 85 mg/dl (70-99) Triglycerides Level 123 mg/dl (0-150) Cholesterol Level 171 mg/dl (0-200) HDL Cholesterol 69 mg/dl LDL Cholesterol, Calculated 77 mg/dl VLDL Cholesterol, Calculated 25 mg/dl Cholesterol/HDL Ratio 2.5 Thyroid Stimulating Hormone (TSH) 1.570 uIu/ml (0.300-4.500) Problem Qualifiers (1) Psychosis: Psychosis type: unspecified psychosis type Qualified Codes: F29 - Unspecified psychosis not due to a substance or known physiological condition
[2016-07-08] MEDS: RISPERIDONE 1 MG TAB PO SCH (12:49)
[2016-07-08] MEDS: hydrOXYzine HCL 25 MG TAB PO PRN (21:58)
[2016-07-09 06:52] VITALS: BP_SYST 121; BP_SYST 128; BP_DIAS 87; PULSE 116; PULSE 94; TEMP 37
[2016-07-09] MEDS: RISPERIDONE ODT 1MG PO SCH (07:49)
[2016-07-09] MEDS ORDERED: RISP1TAB18 PO (09:50)
[2016-07-09] MEDS ORDERED: RSP2 PO (09:50)
--- NOTE | 2016-07-09 09:57 | Discharge Instructions ---
Discharge Information Report Includes Report will include the: Discharge Instructions & Summary Admission Admission Date / Time: Jul 04, 2016 at 11:10 Reason for Admission: Depressive Disorder Nos Discharge Discharge Diagnosis / Problem: Unspecified psychosis Condition at Discharge: Good Discharge Goals Goal(s): Decrease discomfort, Improve disease control, Prevent Disease Progression Activity Recommendations Activity Limitations: resume your previous activity . Instructions / Follow-Up Instructions / Follow-Up . SPECIAL CARE INSTRUCTIONS: 1. Follow through with your scheduled aftercare appointments. If unable to keep an appointment, please call to reschedule. 2. Take your medication only as prescribed. Medication should not be changed or stopped without the approval of your doctor. In the event of worsening symptoms or concerns about side effects, contact your doctor immediately. 3. Utilize new healthy coping skills, anger management skills, and stress management skills learned during your hospitalization. Journal feelings and process them with a support person. Identify stressors or situations that may result in relapse, deterioration or inappropriate behaviors and develop a plan to deal with those issues. 4. If your coping skills are ineffective and you are in crisis, contact your outpatient providers for direction. If unable to reach your providers, please call the CAN HELP LINE AT or go to the closest Emergency Room. 5. Avoid alcohol and un-prescribed drugs. 6. You have been provided with the Mental Health Advance Directives Pamphlet for your review. AFTERCARE APPOINTMENTS: * Please call your insurance company prior to your scheduled appointment to confirm your aftercare providers are covered. Take your insurance information to your appointments. . Discharge / Aftercare Planning Primary Care Physician: Name: Dr. Ellis Appointment Notes: as needed Psychiatrist: Name: Dr. Brandon Date of Appointment: Jul 12, 2016 Time of Appointment: 10:00am Therapist: Name Of Therapist: [facility] Appointment Comments: You will be scheduled for therapist after your appt with Dr. Kenyon Flight Crew Ordnanceman: Name: [facility] Appointment Notes: They will call you at home to schedule Partial or Psych Rehab: Name: [facility] Appointment Comments: referral faxed, they will call you at home to schedule . Follow-Up Care Plan for Follow-Up Care: The patient has an July 12 appt at [facility] for psychiatric care. Current Hospital Diet Patient's current hospital diet: Regular Diet Discharge Diet Recommended Diet: Regular Diet Procedures Procedures Performed: No Pending Studies Pending Studies at Discharge: No Medical Emergencies . Who to Call and When: Medical Emergencies: For questions or emergencies related to your hospital stay, please contact the Inpatient Behavioral Health Unit at [phone]. A psychiatric arnp is on-call 21/10 for the Behavioral Health Unit for emergencies At any time you feel your situation is an emergency, you may also call 911 immediately. . Non-Emergent Contact Non-Emergency issues call your: Psychiatrist, Therapist Advance Directives Existing Advance Directive: No Do You Have an Existing Mental: No Existing Living Will: No Existing Power of Rating Officer: No Advance Directives Info Given: To Pt/S.O. Advance Directives Reason: Declines as Mental Health Visit. Discharge Summary Admission HPI Per the Admitting provider: Per records, the patient assented to the emergency room yesterday after an intentional drug overdose. According to the EMS report, she called 911 herself after taking an intentional overdose of 60 Vistaril and 30 BuSpar because "the voices in her head told her to." When she called 911, she was confused, and could not tell them where she was. She admitted to EMS that she intended to harm herself with the overdose. In the emergency room, she reported a history of anxiety, depression, and schizophrenia. She admitted she been feeling more depressed lately, and heard voices that "put me down and tell me to do bad things." She stated that she took the overdose in an attempt to kill herself, saying "I just haven't been feeling good and it escalated tonight." Her drug screen was positive for marijuana, but the remainder of the toxicology screen was negative. She was sedated and tachycardic, with hypokalemia. She was admitted to the hospitalist service, and given IV fluids. She was somnolent on admission, and at times reported seeing people in the room when no one was there , and hearing them talk amongst themselves. She was restless, and kept falling asleep during assessments. Her told nursing staff that the patient may have taken several of his Ativan, as he had just filled a prescription yesterday for 30 tablets, and there were only 5 left in the bottle. The patient was unable to state whether or not she had taken his Ativan. She was restless and disoriented overnight, this morning was calmer, alert and oriented 4, and was seen by the psychiatric liaison nurse and was willing for voluntary admission. On my assessment, the patient states that she has heard voices and "seen things " every day since she was 10. She sees people walking around her house, and at times can't tell if they're real or not, so will take a picture to help her figure it out. She hears 2 different voices, both male, doesn't recognize them "but it sounds familiar." They are present every day, and come and go throughout the day, occurring with the visual hallucinations, "they hide around the house, can see them peaking around the door." They will tell her to do odd things, like carry 11 cents in her pocket, which she did for along time, and once when she was 9 told her to try on "a really expensive bracelet, so I did. " They will bang on her mayse and yell, "they try to get my attention for some reason." They have told her to hurt herself before, about 3 weeks ago told her to cut herself. She has cut yourself in response to command AH before (years ago , and has scars from it). She gets very upset about the voices, and will hit herself and pull her hair. Yesterday, she was feeling "bad, like I get a lot of anxiety attacks, overthink everything," and started hearing voices telling her to "just take it, you'll feel better." She started taking medications, some hers and some her father's, and didn't feel better, so kept taking them. She was home alone. She then called 911, "I knew to call the cake mixer then, it wasn't how they said it would go" (the voices), as she was "hoping they would shut up, and they didn't." She does not recall telling the EMS or ER staff that she wanted to and was trying to end her life with the OD. She admits to a history of previous suicide attempts, last around age 10 or 11, but denies that she has been suicidal lately. She denies that any of the meds were her dads, and says they were her and her 's. Reports symptoms of depression, with sadness, decreased appetite, difficulty falling asleep, all worsening since going off Geodon. Mood is "nasty, and I'm scared all the time." Anxiety is daily but not constant, with with worry, increased muscle tension, and difficulty thinking clearly .+ paranoia, no delusions evident. Reports mood swings with elevated mood and increased energy, will clean and be excited, but only lasts a few hours, then "the rest of the day is horrible." Has maybe lasted a maximum of 3 days, and had decreased need for sleep, racing thoughts, and increase in goal directed behavior. H/o bulimia at age 13, but denies restricting, binging or purging recently. Hospital Course (1) Intentional drug overdose Avoid medications dangerous in overdose, as this is her third intentional OD. Attend groups and therapy, work on healthy ways to cope and discharge safety plan. Family meeting to review safety plan, ensure no access to guns, and that all meds in the home are locked and secured so she will not have access. (2) Psychosis Differential is broad and includes a primary thought disorder, such as schizophrenia or schizoaffective disorder, bipolar disorder with psychosis, depression with psychosis, or substance induced psychosis. The patient endorses many symptoms, and is a poor historian with respect to the time course of past symptoms. She does not know what she's been diagnosed with in the past , and to that end, we'll request records from Dr. Brandon, her outpatient psychiatrist. Patient's primary concern is AVH. Has never tried risperidone and willing for trial. Reviewed risks, benefits, and common side effects, and she agreed. Will start risperidone M tab, 1 mg twice a day with 1 mg every 6 hours when necessary psychosis. Check fasting labs tomorrow. She thinks that Abilify Maintena was considered in the past, and believe she had a good response to Abilify, but is not sure why this wasn't pursued. We'll need to look into this further, but if covered by insurance, it may be a good option. 07/05/16 - Increase risperdal to 1 mg. AM and 2 mg. HS. Continue prns - Reality orientation 07/06/16 - Review of labs 07/05/16 FBS, Fasting Lipids and TSH all WNL - Continue risperdal 1mg/AM and 2mg/hs and keep prns, if she continues to need mid-day prns would schedule higher dose tomorrow - watch weight and recommend dietary monitoring and exercise, if this medication is effective and weight is climbing consider metformin to offset weight gain given failure of polypharmacy trials in the past - reduce caffiene (see below) - consider psych rehab so that patient can practice reality testing against her IOR and paranoia in social settings 07/07/16 - risperdal 1mg/AM, 1mg mid-day and 2mg/bedtime schedule and keep prn doses - see 07/06/16 as above. 07/08 - continue current meds (3) Anxiety Patient reports symptoms of generalized anxiety disorder, and anxiety is worse recently due to hallucinations. We will need to continue to assess for the presence of an underlying anxiety disorder as her psychosis improved. In the meantime, offer hydroxyzine as needed for anxiety. (4) Bipolar disorder, unspecified The patient endorses periods of depression with frequent, brief, periods of hypomania. The longest lasted about 3 days per her report, so does not quite meet criteria for bipolar type II, but we'll need to further explore this diagnosis. It would be helpful to get collateral information from family, and to review records from outpatient providers. Consider the need for a mood stabilizer. She states she's never been on lithium or Depakote. 07/06/16 and 07/07/16 - patient is socially pleasant and smiling not c/w depression, unclear if this is her baseline back on medications and need to watch for emergence of elevated mood (5) Cannabis abuse Reviewed risks of ongoing substance abuse and recommendations for abstinence. Refer for outpatient therapy and psychiatric f/u to address mental illness and substance abuse. Avoid prescription of medications that are addictive or abusable. (6) Caffeine abuse Risk Factors Assessment : Yes Higher / Fall in social status: No Health problems: No Mental Health Diagnoses: Yes Substance use disorders: Yes Protective Factors Assessment Congregation beliefs: Yes : Yes Responsible for young children: No Employed: No Stable relationships: Yes Supportive family: Yes Day of Discharge Assessment COURSE OF HOSPITALIZATION: The patient was on our unit for 5 days. During the time she was started on Risperdal 1 mg twice a day and 2 mg at bedtime. She tolerated this without side effect. She had been on no medications prior to coming in, presented with feeling bad, having taken an intentional overdose of Vistaril and BuSpar. She was initially admitted to the medical floor and then transferred to us voluntarily when medically cleared. On initial presentation she was somewhat tangential, and pans symptomatic in every area. She was able to slow her thoughts down but did continue to complain of multiple symptoms including verbal, visual and tactile hallucinations. As Risperdal was titrated , her symptoms began to diminish and by the day of discharge, she had only auditory hallucinations remaining and she described them as "the volume being turned way down", describing them as a TV on low in the background. She said that she was feeling as good as she has been in a very long time. We were observance for manic symptoms as she told us she has been diagnosed with bipolar disorder in the past. Although her mood seemed elevated, she said that this is generally her baseline when she is doing well and denied that she felt her thoughts were racing or her energy was elevated. This will continue to need observation with her regular providers postdischarge. Her was involved in a family meeting during her stay, and was supportive. Her children , who weren't in the physical custody of her ex-, also visited and that went well. She was anxious for discharge so that she could prepare Easter gifts for all of her children. DAY OF DISCHARGE ASSESSMENT: Today the patient is requesting discharge. She's had several days in which her mood is good, no suicidal thinking, and all hallucinations diminished. Her will be able to pick her up this morning and she has plans for the rest of her day. She has a safety plan in the event she begins to deteriorate which also includes presenting to the emergency room. Today she is casually and appropriately dressed and groomed. Gait and station are within normal limits. Affect is smiling. Speech is at times rapid but she is able to be quiet when needed. Thoughts are organized, without evidence of delusions. She continues to report low level auditory hallucinations. Recent and remote memory are intact. Intelligence is estimated to be average. Insight and judgment are improved over admission. Laboratory Test 07/05/16 07:12 Fasting Glucose 85 Triglycerides Level 123 Cholesterol Level 171 HDL Cholesterol 69 LDL Cholesterol, Calculated 77 VLDL Cholesterol, Calculated 25 Cholesterol/HDL Ratio 2.5 Thyroid Stimulating Hormone (TSH) 1.570 Total Time Total Time Spent (min): Greater than 30 minutes Total Time Included: examination of the patient, discharge planning, medication reconciliation, communication with other providers Tobacco Cessation at Discharge Smoking Status: Former Smoker FDA approved Prescription: non-smoker Problem Qualifiers (1) Psychosis: Psychosis type: unspecified psychosis type Qualified Codes: F29 - Unspecified psychosis not due to a substance or known physiological condition
== END 2016-07-09 10:56 | disposition home or self-care (01) | DRG 885 ==
LOC: MERGE 11:10 → C.MHU 11:10
PROVIDERS: ADMIT Psychiatry & Neurology Psychiatry; ATTEND Psychiatry & Neurology Psychiatry
DX: F29 Unspecified psychosis not due to a substance or known physiological condition (principal); F31.9 Bipolar disorder, unspecified; F41.1 Generalized anxiety disorder; F12.10 Cannabis abuse, uncomplicated; F15.10 Other stimulant abuse, uncomplicated; Z87.891 Personal history of nicotine dependence; Z91.5 Personal history of self-harm